=== PATIENT | male | born 1960 | race Caucasian/White ===

== ENCOUNTER 2018-09-26 19:56 | Emergency (ER) | payer MEDICARE ==
[~2018-09-26] VITALS: Ht 172.7 cm; Wt 76.2 kg
[2018-09-26] MEDS ORDERED: KEFLEX500 M1 PO (20:21)
[2018-09-26] MEDS ORDERED: BACTRIM DS TAB1 EACH PO (20:21)
[2018-09-26 20:30] VITALS: BP 136/69
== END 2018-09-26 20:31 | disposition home or self-care (01) ==
LOC: M.ERS 19:56
DX: L02.01 Cutaneous abscess of face (principal); Z95.5 Presence of coronary angioplasty implant and graft